=== PATIENT | male | born 1935 | race Caucasian/White ===

== ENCOUNTER 2017-08-06 09:36 | Emergency (ER) | payer OTHER ==
[~2017-08-06] VITALS: Ht 175.3 cm; Wt 98.4 kg
[~2017-08-06 09:36] MED LIST: ALPRAZOLAM ER0.5 MG PO; ALPRAZOLAM0.25 M1 PO; ASPIR-LOW81 MG PO; ASPIRIN EC325 MG PO; ASPIRIN LOW DOS81 M1 PO; AUGMENTIN875 MG PO; CARAFATE1 GM PO; CO Q-10200 MG PO; COQ1050 MG PO; CYANOCOBALAM1000 MCG PO; Carafate PO; FLONASE16 G1 BOTH NARES; HYDROCHLOROTHIA25 MG PO; LEVOFLOXACIN500 MG PO; LEVOTHYROXINE150 MCG PO; LISINOPRIL10 MG PO; LISINOPRIL30 MG PO; LISINOPRIL40 MG PO; LO-DOSE ASPIRIN81 M1 PO; LOTREL 5/201 CAPSULE PO; METAMUCIL CAPSU1 CAP PO; METAMUCIL POWD798 GM PO; METOCLOPRAMIDE H5 MG PO; METOCLOPRAMIDE10 MG PO; METOPROLOL TART50 MG PO; MIRALAX17 GM PO; MIRALAX255 GM PO; NEXIUM40 MG PO; PRAVACHOL80 MG PO; PRAVASTATIN SOD80 MG PO; SINGULAIR10 MG PO; SYNTHROID150 MCG PO; TAMSULOSIN HCL0.4 MG PO; TOPROL XL50 MG PO; TRAMADOL HCL50 MG PO; TYLENOL EXTRA500 MG PO; TYLENOL325 M1 PO; VITAMIN D1000 INTUN PO; VITAMIN D1000 UNIT PO; ZESTORETIC 20-1 EAC1 PO; ZETIA10 MG PO; ZYRTEC10 M2 PO
[2017-08-06 10:50] LABS: APPEARANCE CLEAR ((CLEAR)); BILIRUBIN NEGATIVE; BLOOD NEGATIVE; COLOR YELLOW ((YELLOW)); GLUCOSE (STRIP) 50; KETONES NEGATIVE; LEUKOCYTES NEGATIVE; NITRITE NEGATIVE; PROTEIN (STRIP) 30; SPECIFIC GRAVITY 1.024 (1.000-1.030); UCUL ADDED? NO
[2017-08-06 10:55] LABS: BASOPHIL (%) 0.3 % (0-1); EOSINOPHIL (%) 2.8 % (0-5); EOSINOPHIL COUNT 0.3 K/uL (0-0.3); HEMATOCRIT 41.3 % (38.0-50.0); HEMOGLOBIN 14.5 G/DL (12.5-16.6); IMMATURE GRANULOCYTE (%) 0.3 % (0.0-0.7); LYMPHOCYTE (%) 14.7 % (15-42); LYMPHOCYTE COUNT 1.4 K/uL (1.0-2.8); MCH 31.2 PG (29.0-34.0); MCHC 35.1 G/DL (30.0-36.0); MCV 88.8 FL (86-99); MONOCYTE (%) 8.4 % (3-12); MONOCYTE COUNT 0.8 K/uL (0-0.8); NEUTROPHIL (%) 73.5 % (45-76); NEUTROPHIL COUNT 7.1 K/uL (1.8-6.4); PLATELET COUNT 111 K/uL (156-360); RBC DIS.WIDTH-CV 14.1 % (11.8-14.6); RBC DIS.WIDTH-SD 45.6 % (39-53); RED BLOOD COUNT 4.65 M/uL (4.00-5.50); WHITE BLOOD COUNT 9.7 K/uL (4.1-10.2)
[2017-08-06 11:13] LABS: ALBUMIN 3.5 G/DL (3.2-4.8); CHLORIDE 103 MEQ/L (99-109); POTASSIUM 3.6 MEQ/L (3.7-5.4); SODIUM 133 MEQ/L (136-147); TOTAL BILIRUBIN 1.1 MG/DL (0.0-1.0)
[2017-08-06 11:19] LABS: ALKALINE PHOSPHATASE 95 IU/L (3-129); ALT (GPT) 18 IU/L (3-49); AST (GOT) 20 IU/L (2-34); CREATININE 0.9 MG/DL (0.6-1.3); GFR ESTIMATE (CALCULATED) > 59 mL/min/ (58.99-99999); GLUCOSE 157 mg/dL (70-99); TOTAL PROTEIN 6.3 G/DL (6.4-8.3); UREA NITROGEN (BUN) 14 mg/dL (9-23)
[2017-08-06] MEDS ORDERED: ULTRAM50 MG PO (12:22)
[2017-08-06 15:09] VITALS: BP 114/60
== END 2017-08-06 15:11 | disposition home or self-care (01) ==
LOC: EME 09:36
PROVIDERS: Emergency Medicine
DX: B34.9 Viral infection, unspecified (principal); E03.9 Hypothyroidism, unspecified; J45.909 Unspecified asthma, uncomplicated; E78.5 Hyperlipidemia, unspecified; I10 Essential (primary) hypertension; K21.9 Gastro-esophageal reflux disease without esophagitis; F41.9 Anxiety disorder, unspecified; Z95.1 Presence of aortocoronary bypass graft; Z88.5 Allergy status to narcotic agent
CPT/HCPCS: 71046; 80053; 81003; 83605; 85025; 87040; 87086; 87502; 99281; 99285